=== PATIENT | female | born 1930 | race Caucasian/White ===

== ENCOUNTER 2018-01-27 19:58 | Inpatient (IN) | payer MEDICARE, MEDICAID ==
--- NOTE | 2018-01-27 21:05 | ED Physician Chart ---
ED Chief Complaint/HPI - Patient Information Date Seen:: 01/27/18 Time Seen:: 20:50 Chief Complaint:: facial swelling History of Present Illness:: 88 yr old female with report facial swelling yest here for evaluation Allergies:: Allergies Allergy/AdvReac Type Severity Reaction Status Date / Time ibuprofen Allergy Verified 01/27/18 20:09 Vitals:: Vital Signs - 8 hr 01/27/18 20:00 Temp 97.8 F HR 83 RR 18 BP 153/73 O2 Sat % 96 ED Review of Systems - Review of Systems General/Constitutional: No fever Skin: Other (swelling face) Head: No headache Eyes: No diplopia ENT: No earache Neck: No neck pain Cardio Vascular: No chest pain, No palpitations, No PND, No orthopnea, No edema ED Past Medical History - Past Medical History Obtainable: No Past Medical History: HTN (muscle weakness poor appetite anxiety depression), CVA/TIA, Other (metabolic encephalopathy,) Family History: Other (unclear) Social History: Other (unclear) Family Medical History - Family Member Mother History Unknown: Yes ED Physical Exam - Physical Examination General/Constitutional: Awake, Alert Other Gen/Cons comments:: facial swelling eye lid swelling Other Eyes comments:: bilateral periorbital swelling Other Skin comments:: facial swelling Neck: Nontender Respiratory: Nl effort/Exclusion ED Assessment - Assessment General Assessment: facial edema unclear etiology ED Septic Shock - . Is Septic Shock (SBP<90, OR Lactate>4 mmol\L) present?: No - <6hrs of presentation: Vital Signs: Vital Signs - 8 hr 01/27/18 20:00 Temp 97.8 F HR 83 RR 18 BP 153/73 O2 Sat % 96 ED Reassessment (Disposition) - Reassessment Reassessment:: facial edema Reassessment Condition:: Unchanged - Diagnosis Diagnosis:: edema - Patient Disposition Discharge/Transfer:: Acute Care w/in this hosp ED Discharge Plan - Patient Disposition Admit/Discharge/Transfer: Acute Care w/in this hosp
[2018-01-27 22:34] LABS: % BASOPHILS 1.1 % (0.0-2.0); % EOSINOPHILS 1.1 % (0.0-5.0); % LYMPHOCYTES 14.7 % (20.0-50.0); % MONOCYTES 7.4 % (2.0-10.0); % NEUTROPHILS 75.7 % (40.0-80.0); BASOPHILE ABSOLUTE 0.1 Th/cumm (0-0.2); EOSINOPHILE ABSOLUTE 0.1 Th/cmm (0.1-0.4); HEMATOCRIT 32.8 % (41.0-60); HEMOGLOBIN 10.9 gm/dL (12-16); LYMPHOCYTE ABSOLUTE 1.3 Th/cmm (1.5-3.0); MEAN CELL VOLUME 93.6 fl (81-100); MEAN CORPUSCULAR HGB CONC 33.2 pg (28.0-36.0); MEAN PLATELET VOLUME 6.1 fl; MONOCYTE ABSOLUTE 0.7 Th/cmm (0.3-1.0); NEUTROPHILE ABSOLUTE 6.9 Th/cmm (1.8-8.0); PLATELET COUNT 415 Th/cmm (150-400); RED CELL DISTRIBUTION WIDTH 15.3 % (11.5-20.0); WHITE BLOOD COUNT 9.1 Th/cmm (4.8-10.8)
[2018-01-27 22:52] LABS: ANION GAP 12.1 (7.0-16.0); BUN - UREA NITROGEN 12 mg/dL (7-25); CALCIUM SERUM 7.8 mg/dL (8.6-10.3); CARBON DIOXIDE 20.2 mEq/L (21.0-31.0); CHLORIDE 106 mEq/L (98-107); CREATININE - SERUM 0.5 mg/dL (0.6-1.2); GLUCOSE 91 mg/dL (70-105); POTASSIUM SERUM 3.3 mEq/L (3.5-5.1); SODIUM SERUM 135 mEq/L (136-145)
[2018-01-28] MEDS: D5-0.9%NS 1,000 ML IV SCH ×2 (03:30→23:31)
[2018-01-28] MEDS ORDERED: Pneumococcal Vaccine 0.5 mL Vial IM ONE (06:00)
--- NOTE | 2018-01-28 09:09 | Diagnostic Imaging Report ---
Exam: Chest x-ray portable. HISTORY: Cough. Findings: Portable examination of the chest at 2211 hours reviewed, no prior studies available comparison. The study demonstrates scoliotic convexity of thoracic spine to the right. COPD changes are noted. There is evidence for obliteration of the left costophrenic angle this might be related to atelectasis pneumonia with superimposed effusion. Clinical correlation and follow-up exam is recommended. IMPRESSION: 1. COPD changes Left basilar atelectasis versus infiltrate with superimposed small effusion cannot be excluded clinical correlation and follow-up exam is recommended.
[2018-01-28] MEDS ORDERED: Hydrocodone/APAP 5mg/325mg Tab PO PRN (10:21)
[2018-01-28] MEDS ORDERED: KCL 20mEq/100mL Premix 20 MEQ/100 ML PIGGYBACK IV ONE (10:23)
[2018-01-28] MEDS ORDERED: Mag Sulfate 2gm/50mL Premix 2 GM/50 ML BAG IV PRN (10:24)
[2018-01-28] MEDS ORDERED: Morphine Sulfate 4 mg/mL 1mL Syr IVP PRN (10:24)
[2018-01-28] MEDS: Piperacillin/Tazobact 2.25 gm in 0.9% NS 50 ML IV SCH ×3 (12:13→23:35)
--- NOTE | 2018-01-28 13:31 | History & Physical ---
ADMIT DATE: 01/28/2018 CHIEF COMPLAINT: Weakness, failure to thrive, diminished oral intake. HISTORY OF PRESENT ILLNESS: The patient is an 88-year-old female who is a patient at [facility]. She has history of dementia, Parkinson disease, chronic pain, depression, neuropathy as well. For the last several days, she has been declining in fact she stopped eating about a week ago. Over the last few weeks, she has been becoming weaker and weaker, now. She had zero oral intake and she had been becoming more confused, more lethargic and basically experiencing failure to thrive. She was sent to the hospital for further workup and treatment. PAST MEDICAL HISTORY: Significant for Alzheimer's dementia, Parkinson disease, neuropathic pain, dyslipidemia, anxiety. SOCIAL HISTORY: No history of alcohol, tobacco, or drug abuse. FAMILY HISTORY: Noncontributory. ALLERGIES: IBUPROFEN exact reaction unknown. SURGICAL HISTORY: No recent major surgeries. MEDICATIONS: All snf medications reviewed and we continue most of them; however, I have ordered a swallow evaluation first. REVIEW OF SYSTEMS: GENERAL: Positive recent fatigue, worsening confusion and lethargy. HEENT: No recent head trauma or change in vision, taste, hearing, or smell. Oral: No recent pain or discharge. NEUROLOGIC: She has history of worsening confusion. She has history of Alzheimer dementia and Parkinson's disease. NECK: No recent tracheal deviation. MUSCULOSKELETAL: Positive for worsening muscle weakness and her resting tremor. SKIN: No recent rashes. PSYCHIATRIC: She has history of anxiety and depression. EXTREMITIES: Positive for edema. RESPIRATORY: No history of COPD or asthma. PHYSICAL EXAMINATION: VITAL SIGNS: Temperature is 98.3 degrees, heart rate is 80, respirations 18, blood pressure 130/71. Currently, no pain. GENERAL: No acute distress. She is awake, alert to name only. HEENT: No acute issues. NECK: Trachea is midline. CARDIOVASCULAR: Regular rate and rhythm. SKIN: Poor turgor. MUSCULOSKELETAL: She has muscle wasting and decreased muscle mass and decreased muscle strength. NEUROLOGIC: She has significant tremors of the hands while resting. EXTREMITIES: 1+ edema. She has facial edema and lower extremity edema. RESPIRATORY: Decreased breath sounds bilaterally and some rales and congestion as well. NEUROLOGIC: No evidence of acute stroke or seizure activity. She is confused. She has tremors. ABDOMEN: Nontender, nondistended. GENITOURINARY: No hematuria is noted. LABORATORY DATA: White count is 9.1; hemoglobin 10.9; platelet count 215,000. Sodium 135, potassium 3.2, chloride 106, bicarbonate 20.2, BUN 12, creatinine 0.5, calcium is 7.8. Chest x-ray shows infiltrates. ASSESSMENT AND PLAN: 1. Aspiration pneumonia. 2. Parkinson disease. 3. Neuropathic pain. 4. Hypokalemia. 5. Failure to thrive. 6. Dementia, Alzheimer's type with exacerbation. 7. Hypertension. PLAN: Swallow evaluation has been done. I have started the patient on IV Zosyn. Continue IV fluids of D5 NS. She is to be impaired. Diet will resume if she is not a risk for aspirating. Prognosis is poor. JOB# [id number]
[2018-01-28 19:02] LABS: URINE MICROSCOPIC INDICATED? YES; URINE SOURCE CLEAN C
[2018-01-28 19:03] LABS: URINE BILIRUBIN NEGATIVE (NEGATIVE); URINE BLOOD TRACE (NEGATIVE); URINE GLUCOSE (UA) NEGATIVE (NEGATIVE); URINE KETONE 15 mg/dL (NEGATIVE); URINE LEUKOCYTE ESTERASE NEGATIVE (NEGATIVE); URINE NITRATE NEGATIVE (NEGATIVE); URINE PH 5.5 (4.6 - 8.0); URINE PROTEIN NEGATIVE (NEGATIVE); URINE UROBILINOGEN 0.2 E.U./dL (0.2 - 1.0)
[2018-01-28 19:06] LABS: URINE BACTERIA NONE SEEN /hpf (NONE SEEN); URINE CLARITY CLEAR (CLEAR); URINE COLOR YELLOW; URINE EPITHELIAL CELLS NONE SEEN /lpf (FEW); URINE WBC NONE SEEN /hpf (0-5)
[2018-01-29 05:20] LABS: % BASOPHILS 2.1 % (0.0-2.0); % EOSINOPHILS 3.4 % (0.0-5.0); % LYMPHOCYTES 20.2 % (20.0-50.0); % NEUTROPHILS 64.3 % (40.0-80.0); BASOPHILE ABSOLUTE 0.1 Th/cumm (0-0.2); EOSINOPHILE ABSOLUTE 0.2 Th/cmm (0.1-0.4); HEMATOCRIT 29.6 % (41.0-60); HEMOGLOBIN 9.7 gm/dL (12-16); LYMPHOCYTE ABSOLUTE 1.2 Th/cmm (1.5-3.0); MEAN CORPUSCULAR HEMOGLOBIN 30.8 pg (27.0-31.0); MEAN CORPUSCULAR HGB CONC 32.8 pg (28.0-36.0); MEAN PLATELET VOLUME 6.1 fl; MONOCYTE ABSOLUTE 0.6 Th/cmm (0.3-1.0); NEUTROPHILE ABSOLUTE 3.8 Th/cmm (1.8-8.0); PLATELET COUNT 407 Th/cmm (150-400); RED BLOOD COUNT 3.15 Mil/cmm (3.80-5.20); WHITE BLOOD COUNT 5.9 Th/cmm (4.8-10.8)
[2018-01-29 05:31] LABS: ANION GAP 8.8 (7.0-16.0); BUN - UREA NITROGEN 11 mg/dL (7-25); CALCIUM SERUM 7.5 mg/dL (8.6-10.3); CARBON DIOXIDE 24.2 mEq/L (21.0-31.0); CHLORIDE 106 mEq/L (98-107); CREATININE - SERUM 0.7 mg/dL (0.6-1.2); GLUCOSE 126 mg/dL (70-105); SODIUM SERUM 136 mEq/L (136-145)
[2018-01-29] MEDS: Piperacillin/Tazobact 2.25 gm in 0.9% NS 50 ML IV SCH ×3 (06:02→17:08)
[2018-01-29] MEDS ORDERED: Potassium Chloride 40 MEQ, Lidocaine 1% 20mL Vial 25 MG in Sodium Chloride 0.9% 250 ML IV ONE (10:30)
[2018-01-29] MEDS ORDERED: Potassium Chloride 20 mEq ER Tab PO PRN (10:31)
[2018-01-29] MEDS ORDERED: Albuterol/Ipratropium Neb 3 ML AERS HHN PRN (10:33)
--- NOTE | 2018-01-29 10:35 | General Progress Note ---
Subjective - Review of Systems Service Date: 01/29/18 Subjective: Pt seen and eval. Weak. Confused. No n,v,d or cp. On IV Zosyn. No fevers or chills. No pain. No falls or sz. Has sob with exertion. Objective - Results Result Diagrams: 01/29/18 05:05 01/29/18 05:05 Recent Labs: Laboratory Last Values WBC 5.9 Th/cmm (4.8-10.8) 01/29/18 05:05 RBC 3.15 Mil/cmm (3.80-5.20) L 01/29/18 05:05 Hgb 9.7 gm/dL (12-16) L 01/29/18 05:05 Hct 29.6 % (41.0-60) L 01/29/18 05:05 MCV 94.0 fl (81-100) 01/29/18 05:05 MCH 30.8 pg (27.0-31.0) 01/29/18 05:05 MCHC Differential 32.8 pg (28.0-36.0) 01/29/18 05:05 RDW 15.0 % (11.5-20.0) 01/29/18 05:05 Plt Count 407 Th/cmm (150-400) H 01/29/18 05:05 MPV 6.1 fl 01/29/18 05:05 Neutrophils % 64.3 % (40.0-80.0) 01/29/18 05:05 Lymphocytes % 20.2 % (20.0-50.0) 01/29/18 05:05 Monocytes % 10.0 % (2.0-10.0) 01/29/18 05:05 Eosinophils % 3.4 % (0.0-5.0) 01/29/18 05:05 Basophils % 2.1 % (0.0-2.0) H 01/29/18 05:05 Sodium 136 mEq/L (136-145) 01/29/18 05:05 Potassium 3.0 mEq/L (3.5-5.1) L 01/29/18 05:05 Chloride 106 mEq/L (98-107) 01/29/18 05:05 Carbon Dioxide 24.2 mEq/L (21.0-31.0) 01/29/18 05:05 Anion Gap 8.8 (7.0-16.0) 01/29/18 05:05 BUN 11 mg/dL (7-25) 01/29/18 05:05 Creatinine 0.7 mg/dL (0.6-1.2) 01/29/18 05:05 Est GFR ( Amer) TNP 01/29/18 05:05 Est GFR (Non-Af Amer) TNP 01/29/18 05:05 BUN/Creatinine Ratio 15.7 01/29/18 05:05 Glucose 126 mg/dL (70-105) H 01/29/18 05:05 Calcium 7.5 mg/dL (8.6-10.3) L 01/29/18 05:05 Magnesium 1.7 mg/dL (1.9-2.7) L 01/28/18 10:40 Urine Source CLEAN C 01/28/18 16:50 Urine Color YELLOW 01/28/18 16:50 Urine Clarity CLEAR (CLEAR) 01/28/18 16:50 Urine pH 5.5 (4.6 - 8.0) 01/28/18 16:50 Ur Specific [place] 1.020 (1.005-1.030) 01/28/18 16:50 Urine Protein NEGATIVE mg/dL (NEGATIVE) 01/28/18 16:50 Urine Glucose (UA) NEGATIVE mg/dL (NEGATIVE) 01/28/18 16:50 Urine Ketones 15 mg/dL (NEGATIVE) H 01/28/18 16:50 Urine Blood TRACE (NEGATIVE) 01/28/18 16:50 Urine Nitrate NEGATIVE (NEGATIVE) 01/28/18 16:50 Urine Bilirubin NEGATIVE (NEGATIVE) 01/28/18 16:50 Urine Urobilinogen 0.2 E.U./dL (0.2 - 1.0) 01/28/18 16:50 Ur Leukocyte Esterase NEGATIVE (NEGATIVE) 01/28/18 16:50 Urine RBC 2-5 /hpf (0-5) 01/28/18 16:50 Urine WBC NONE SEEN /hpf (0-5) 01/28/18 16:50 Ur Epithelial Cells NONE SEEN /lpf (FEW) 01/28/18 16:50 Urine Bacteria NONE SEEN /hpf (NONE SEEN) 01/28/18 16:50 - Physical Exam Vitals and I&O: Vital Signs Temp 98.6 F 01/29/18 04:00 Pulse 70 01/29/18 09:36 Resp 18 01/29/18 04:00 BP 131/62 01/29/18 09:36 Pulse Ox 95 01/29/18 04:00 Intake & Output 01/28/18 01/29/18 01/29/18 18:59 06:59 18:59 Intake Total 2300 100 Balance 2300 100 Weight (lbs) 40.642 kg 44.724 kg Intake: Intake, IV Amount 1200 100 D5-0.9%Ns 1,000 ml @ 70 1000 mls/hr IV .[id number] [facility] Rx #:[id number] Piperacillin Sodium/ 100 100 Tazobact 2.25 gm In Sodium Chloride 0.9% 50 ml @ 100 mls/hr IV Q6HR [facility] Rx#:[id number] Oral 1100 Other: # Voids 4 # Bowel Movements 1 Weight Source Bedscale Bedscale Active Medications: Current Medications Acetaminophen (Tylenol) 650 mg PO Q6H PRN PRN Reason: HEADACHE/TEMP ABOVE 100F Stop: 03/29/18 10:23 Acetaminophen/Hydrocodone Bitart ([place] 5mg/325mg) 1 tab PO Q6H PRN PRN Reason: Pain (Moderate) Stop: 03/29/18 10:20 Carbidopa/Levodopa (Sinemet 25 Mg-250 Mg) 1 tab PO QID [facility] Stop: 03/29/18 12:59 Last Admin: 01/29/18 09:36 Dose: 1 tab Docusate Sodium (Colace) 100 mg PO BID PRN PRN Reason: Constipation Stop: 03/29/18 10:23 Gabapentin (Neurontin) 300 mg PO BID [facility] Stop: 03/29/18 16:59 Last Admin: 01/29/18 09:36 Dose: 300 mg Heparin Sodium (Porcine) (Heparin) 5,000 units SUBQ Q12HR [facility] Stop: 03/29/18 20:59 Last Admin: 01/29/18 09:37 Dose: 5,000 units Dextrose/Sodium Chloride (D5-0.9%Ns) 1,000 mls @ 70 mls/hr IV .[id number] [facility] Stop: 03/29/18 00:44 Last Admin: 01/28/18 23:31 Dose: 70 mls/hr Magnesium Sulfate (Magnesium Sulfate Premix) 2 gm in 50 mls @ 25 mls/hr IV DAILY PRN PRN Reason: Magnesium level less than 1.6 Stop: 03/29/18 10:23 Piperacillin Sod/Tazobactam (Sod 2.25 gm/ Sodium Chloride) 50 mls @ 100 mls/hr IV Q6HR [facility] Stop: 03/29/18 11:59 Last Infusion: 01/29/18 06:32 Dose: Infused Potassium Chloride 40 meq/Lidocaine HCl 25 mg/ Sodium Chloride 272.5 mls @ 68 mls/hr IV X1 ONE Stop: 01/29/18 14:30 Magnesium Sulfate (Magnesium Sulfate Premix) 2 gm in 50 mls @ 25 mls/hr IV X1 ONE Stop: 01/29/18 12:31 Lorazepam (Ativan) 1 mg IVP Q4HR PRN; Protocol PRN Reason: Agitation Stop: 03/29/18 10:23 Losartan Potassium (Cozaar) 50 mg PO DAILY [facility] Stop: 03/30/18 08:59 Last Admin: 01/29/18 09:36 Dose: 50 mg Magnesium Oxide (Mag-Oxide) 400 mg PO BID PRN PRN Reason: Mg less than 1.9 Stop: 03/29/18 10:23 Last Admin: 01/29/18 00:34 Dose: 400 mg Miscellaneous (Zosyn Iv Per Pharmacy) 1 ea MC PRN PRN PRN Reason: PROTOCOL Stop: 03/29/18 10:19 Morphine Sulfate (Morphine) 1 mg IVP Q4HR PRN PRN Reason: Severe Pain Stop: 03/29/18 10:23 Ondansetron HCl (Zofran) 4 mg IVP Q6H PRN PRN Reason: Nausea / Vomiting Stop: 03/29/18 10:23 Potassium Chloride (Klor-Con) 40 meq PO DAILY PRN PRN Reason: k level less than 3.5 Stop: 03/30/18 10:30 General: No acute distress, Other (confused, weak) HEENT: Atraumatic, PERRLA Neck: Supple, no JVD Cardiovascular: Regular rate, Normal S1 Lungs: Other (decreased BS BL) Assessment/Plan - Assessment Assessment: Asp PNA Hypokalemia Parkinson's disease Fail to thrive Neuropathic pain ANAMARIA with exac HTN Possible dysphagia - Plan Plan: Swallow eval pending. On IV Zosyn. Start prn Duoneb. K rider today. Pt very weak. Nutritional Asmnt/Malnutr-PDOC - Dietary Evaluation Malnutrition Findings (Please click <Entered> for more info): Nutritional Asmnt/Malnutrition Start: 01/28/18 12: 33 Text: Status: Complete Freq: Document 01/28/18 12:33 KORIN (Rec: 01/28/18 12:47 [facility]) Nutritional Asmnt/Malnutrition Patient General Information Nutritional Screening Consult Diagnosis Failure to Thrive Pertinent Medical Hx/Surgical Hx HTN, muscle weakness, poor appetite, anxitety, depression , CVA/TIA, metabolic encephalopathy Subjective Information Consult received for Yg Jacobs . Per nursing notes, patient with poor appetite x 1 day. Per nursing notes, patient is aphasic. Swallow evaluation pending. Patient's family at bedside; states she only eats ground foods due to no teeth, mostly liquids. Likes her liquids on ice and with a bendy straw. States they have been bringing her in "halo halo" ice cream, and she has been eating ~1 cup at a time. Per family, patient weighed 98lb a few months ago (9lb weight loss). Patient appears with severe muscle wasting. Current Diet Order/ Nutrition Support Mechanical soft ground Patient / S.O Can't verbalize diet edu Pertinent Medications D5-0.9% NS @70ml/hr, colace, cozaar, mag-oxide, magnesium sulfate, zofran, abx Pertinent Labs (01/27) Na 135, K 3.3, Calcium 7.8, Mg 1.7 Nutritional Hx/Data Height 1.52 m Height (Calculated Centimeters) 152.4 Current Weight (lbs) 40.37 kg Weight (Calculated Kilograms) 40.4 Weight (Calculated Grams) 68994.7 [place] Body Weight 100 % [place] Body Weight 89 Body Mass Index (BMI) 17.4 Recent Weight Change No Weight Status Underweight GI Symptoms GI Symptoms None Last BM none noted since admission Difficult in: Chewing Food Allergies No Cultural/Ethnic/Zoroastrian Belief none indicated Usual diet at home ground, mostly liquid (likes strawberry nutrition supplements.) Skin Integrity/Comment: Yg Jacobs, coccyx "area of concern", scar Current %PO Poor (25-49%) Estimated Nutritional Goals BEE in Kcals: Using Current wt Calories/Kcals/Kg 40.4kg CBW (30-35 kcal/kg) Kcals Calculated ~7681-3866 kcal/day Protein: Using Current wt Protein g/k.2-1.5 gm/kg Protein Calculated ~50-60gm/day Fluid: ml ~5474-6468 ml/day Nutritional Problem 1. Problem Problem Altered nutrition related lab values related to Etiology electrolyte imbalance aeb Signs/Symptoms: Na 135, K 3.3, Calcium 7.8, Mg 1.7 Intervention/Recommendation Comments 1. Continue mechanical soft ground diet as tolerated by patient. Modify diet texture based on results of swallow evaluation. 2. Add Boost plus (strawberry, by patient's request) TID with meals due to patient prefering nutrition from liquids. 3. Provide assistance with all meals. 4. F/U HR 01/30- Expected Outcomes/Goals Expected Outcomes/Goals Oral intake >75% of meals, weight gain toward IBW, labs WNL.
[2018-01-29] MEDS ORDERED: Mag Sulfate 2gm/50mL Premix 2 GM/50 ML BAG IV ONE (11:00)
[2018-01-29] MEDS: KCL 20mEq/100mL Premix 20 MEQ/100 ML PIGGYBACK IV SCH ×2 (11:57→12:02)
[2018-01-29] MEDS: D5-0.9%NS 1,000 ML IV SCH (17:07)
[2018-01-30] MEDS: Piperacillin/Tazobact 2.25 gm in 0.9% NS 50 ML IV SCH ×4 (02:41→18:11)
[2018-01-30 05:07] LABS: % BASOPHILS 0.6 % (0.0-2.0); % EOSINOPHILS 5.7 % (0.0-5.0); % LYMPHOCYTES 19.9 % (20.0-50.0); % MONOCYTES 7.6 % (2.0-10.0); % NEUTROPHILS 66.2 % (40.0-80.0); BASOPHILE ABSOLUTE 0.1 Th/cumm (0-0.2); EOSINOPHILE ABSOLUTE 0.5 Th/cmm (0.1-0.4); HEMATOCRIT 29.5 % (41.0-60); HEMOGLOBIN 9.9 gm/dL (12-16); LYMPHOCYTE ABSOLUTE 1.8 Th/cmm (1.5-3.0); MEAN CORPUSCULAR HEMOGLOBIN 31.6 pg (27.0-31.0); MEAN CORPUSCULAR HGB CONC 33.6 pg (28.0-36.0); MEAN PLATELET VOLUME 5.9 fl; MONOCYTE ABSOLUTE 0.7 Th/cmm (0.3-1.0); NEUTROPHILE ABSOLUTE 5.7 Th/cmm (1.8-8.0); PLATELET COUNT 396 Th/cmm (150-400); RED BLOOD COUNT 3.14 Mil/cmm (3.80-5.20); RED CELL DISTRIBUTION WIDTH 15.4 % (11.5-20.0)
[2018-01-30 05:12] LABS: WHITE BLOOD COUNT 8.8 Th/cmm (4.8-10.8)
[2018-01-30 05:39] LABS: ANION GAP 8.8 (7.0-16.0); BUN - UREA NITROGEN 6 mg/dL (7-25); CALCIUM SERUM 7.4 mg/dL (8.6-10.3); CARBON DIOXIDE 23.7 mEq/L (21.0-31.0); CHLORIDE 106 mEq/L (98-107); CREATININE - SERUM 0.6 mg/dL (0.6-1.2); GLUCOSE 112 mg/dL (70-105); MAGNESIUM 2.2 mg/dL (1.9-2.7); POTASSIUM SERUM 3.5 mEq/L (3.5-5.1); SODIUM SERUM 135 mEq/L (136-145)
--- NOTE | 2018-01-30 09:05 | General Progress Note ---
Subjective - Review of Systems Service Date: 01/30/18 Subjective: Pt seen and eval. Weak. Confused. No n,v,d or cp. On IV Zosyn. No fevers or chills. No pain. No falls or sz. Has sob with exertion. Swallow eval to be done today. Objective - Results Result Diagrams: 01/30/18 05:00 01/30/18 05:00 Recent Labs: Laboratory Last Values WBC 8.8 Th/cmm (4.8-10.8) D 01/30/18 05:00 RBC 3.14 Mil/cmm (3.80-5.20) L 01/30/18 05:00 Hgb 9.9 gm/dL (12-16) L 01/30/18 05:00 Hct 29.5 % (41.0-60) L 01/30/18 05:00 MCV 94.0 fl (81-100) 01/30/18 05:00 MCH 31.6 pg (27.0-31.0) H 01/30/18 05:00 MCHC Differential 33.6 pg (28.0-36.0) 01/30/18 05:00 RDW 15.4 % (11.5-20.0) 01/30/18 05:00 Plt Count 396 Th/cmm (150-400) 01/30/18 05:00 MPV 5.9 fl 01/30/18 05:00 Neutrophils % 66.2 % (40.0-80.0) 01/30/18 05:00 Lymphocytes % 19.9 % (20.0-50.0) L 01/30/18 05:00 Monocytes % 7.6 % (2.0-10.0) 01/30/18 05:00 Eosinophils % 5.7 % (0.0-5.0) H 01/30/18 05:00 Basophils % 0.6 % (0.0-2.0) 01/30/18 05:00 Sodium 135 mEq/L (136-145) L 01/30/18 05:00 Potassium 3.5 mEq/L (3.5-5.1) 01/30/18 05:00 Chloride 106 mEq/L (98-107) 01/30/18 05:00 Carbon Dioxide 23.7 mEq/L (21.0-31.0) 01/30/18 05:00 Anion Gap 8.8 (7.0-16.0) 01/30/18 05:00 BUN 6 mg/dL (7-25) L 01/30/18 05:00 Creatinine 0.6 mg/dL (0.6-1.2) 01/30/18 05:00 Est GFR ( Amer) TNP 01/30/18 05:00 Est GFR (Non-Af Amer) TNP 01/30/18 05:00 BUN/Creatinine Ratio 10.0 01/30/18 05:00 Glucose 112 mg/dL (70-105) H 01/30/18 05:00 Calcium 7.4 mg/dL (8.6-10.3) L 01/30/18 05:00 Magnesium 2.2 mg/dL (1.9-2.7) 01/30/18 05:00 Urine Source CLEAN C 01/28/18 16:50 Urine Color YELLOW 01/28/18 16:50 Urine Clarity CLEAR (CLEAR) 01/28/18 16:50 Urine pH 5.5 (4.6 - 8.0) 01/28/18 16:50 Ur Specific [place] 1.020 (1.005-1.030) 01/28/18 16:50 Urine Protein NEGATIVE mg/dL (NEGATIVE) 01/28/18 16:50 Urine Glucose (UA) NEGATIVE mg/dL (NEGATIVE) 01/28/18 16:50 Urine Ketones 15 mg/dL (NEGATIVE) H 01/28/18 16:50 Urine Blood TRACE (NEGATIVE) 01/28/18 16:50 Urine Nitrate NEGATIVE (NEGATIVE) 01/28/18 16:50 Urine Bilirubin NEGATIVE (NEGATIVE) 01/28/18 16:50 Urine Urobilinogen 0.2 E.U./dL (0.2 - 1.0) 01/28/18 16:50 Ur Leukocyte Esterase NEGATIVE (NEGATIVE) 01/28/18 16:50 Urine RBC 2-5 /hpf (0-5) 01/28/18 16:50 Urine WBC NONE SEEN /hpf (0-5) 01/28/18 16:50 Ur Epithelial Cells NONE SEEN /lpf (FEW) 01/28/18 16:50 Urine Bacteria NONE SEEN /hpf (NONE SEEN) 01/28/18 16:50 - Physical Exam Vitals and I&O: Vital Signs Temp 98.4 F 01/30/18 07:31 Pulse 77 01/30/18 07:45 Resp 20 01/30/18 07:45 BP 137/71 01/30/18 07:31 Pulse Ox 95 01/30/18 07:45 Intake & Output 01/29/18 01/30/18 01/30/18 18:59 06:59 18:59 Intake Total 2254.167 290 Balance 2254.167 290 Weight (lbs) 44.679 kg 44.452 kg Intake: Intake, IV Amount 1104.167 50 D5-0.9%Ns 1,000 ml @ 70 1000 mls/hr IV .[id number] [facility] Rx #:[id number] KCL 20mEq/100mL Premix 20 4.167 meq In 100 ml @ 50 mls/ hr IV Q2H [facility] Rx#: [id number] Piperacillin Sodium/ 100 50 Tazobact 2.25 gm In Sodium Chloride 0.9% 50 ml @ 100 mls/hr IV Q6HR [facility] Rx#:[id number] Oral 1150 240 Other: # Voids 3 3 # Bowel Movements 0 2 Stool Characteristics Soft Soft Weight Source Bedscale Bedscale Active Medications: Current Medications Acetaminophen (Tylenol) 650 mg PO Q6H PRN PRN Reason: HEADACHE/TEMP ABOVE 100F Stop: 03/29/18 10:23 Acetaminophen/Hydrocodone Bitart ([place] 5mg/325mg) 1 tab PO Q6H PRN PRN Reason: Pain (Moderate) Stop: 03/29/18 10:20 Albuterol/Ipratropium (Duoneb Neb) 3 ml HHN Q4H PRN PRN Reason: Wheezing Stop: 03/30/18 10:32 Carbidopa/Levodopa (Sinemet 25 Mg-250 Mg) 1 tab PO QID [facility] Stop: 03/29/18 12:59 Last Admin: 01/29/18 21:54 Dose: 1 tab Docusate Sodium (Colace) 100 mg PO BID PRN PRN Reason: Constipation Stop: 03/29/18 10:23 Gabapentin (Neurontin) 300 mg PO BID [facility] Stop: 03/29/18 16:59 Last Admin: 01/29/18 17:08 Dose: 300 mg Heparin Sodium (Porcine) (Heparin) 5,000 units SUBQ Q12HR [facility] Stop: 03/29/18 20:59 Last Admin: 01/29/18 21:54 Dose: 5,000 units Dextrose/Sodium Chloride (D5-0.9%Ns) 1,000 mls @ 70 mls/hr IV .[id number] [facility] Stop: 03/29/18 00:44 Last Admin: 01/29/18 17:07 Dose: 70 mls/hr Magnesium Sulfate (Magnesium Sulfate Premix) 2 gm in 50 mls @ 25 mls/hr IV DAILY PRN PRN Reason: Magnesium level less than 1.6 Stop: 03/29/18 10:23 Piperacillin Sod/Tazobactam (Sod 2.25 gm/ Sodium Chloride) 50 mls @ 100 mls/hr IV Q6HR [facility] Stop: 03/29/18 11:59 Last Admin: 01/30/18 06:01 Dose: 100 mls/hr Lorazepam (Ativan) 1 mg IVP Q4HR PRN; Protocol PRN Reason: Agitation Stop: 03/29/18 10:23 Losartan Potassium (Cozaar) 50 mg PO DAILY [facility] Stop: 03/30/18 08:59 Last Admin: 01/29/18 09:36 Dose: 50 mg Magnesium Oxide (Mag-Oxide) 400 mg PO BID PRN PRN Reason: Mg less than 1.9 Stop: 03/29/18 10:23 Last Admin: 01/29/18 00:34 Dose: 400 mg Miscellaneous (Zosyn Iv Per Pharmacy) 1 ea MC PRN PRN PRN Reason: PROTOCOL Stop: 03/29/18 10:19 Morphine Sulfate (Morphine) 1 mg IVP Q4HR PRN PRN Reason: Severe Pain Stop: 03/29/18 10:23 Ondansetron HCl (Zofran) 4 mg IVP Q6H PRN PRN Reason: Nausea / Vomiting Stop: 03/29/18 10:23 Potassium Chloride (Klor-Con) 40 meq PO DAILY PRN PRN Reason: k level less than 3.5 Stop: 03/30/18 10:30 General: No acute distress, Other (confused, weak) HEENT: Atraumatic, PERRLA Neck: Supple, no JVD Cardiovascular: Regular rate, Normal S1 Lungs: Other (decreased BS BL) Assessment/Plan - Assessment Assessment: Asp PNA Hypokalemia Parkinson's disease Fail to thrive Neuropathic pain ANAMARIA with exac HTN Possible dysphagia - Plan Plan: Swallow eval pending. On IV Zosyn. Start prn Duoneb. Hypokalemia and Hypomagnesemia resolved. Pt very weak. Swallow eval to be done today. Nutritional Asmnt/Malnutr-PDOC - Dietary Evaluation Malnutrition Findings (Please click <Entered> for more info): Nutritional Asmnt/Malnutrition Start: 01/28/18 12: 33 Text: Status: Complete Freq: Document 01/28/18 12:33 [facility] (Rec: 01/28/18 12:47 [facility] Nutritional Asmnt/Malnutrition Patient General Information Nutritional Screening Consult Diagnosis Failure to Thrive Pertinent Medical Hx/Surgical Hx HTN, muscle weakness, poor appetite, anxitety, depression , CVA/TIA, metabolic encephalopathy Subjective Information Consult received for Yg 11 . Per nursing notes, patient with poor appetite x 1 day. Per nursing notes, patient is aphasic. Swallow evaluation pending. Patient's family at bedside; states she only eats ground foods due to no teeth, mostly liquids. Likes her liquids on ice and with a bendy straw. States they have been bringing her in "halo halo" ice cream, and she has been eating ~1 cup at a time. Per family, patient weighed 98lb a few months ago (9lb weight loss). Patient appears with severe muscle wasting. Current Diet Order/ Nutrition Support Mechanical soft ground Patient / S.O Can't verbalize diet edu Pertinent Medications D5-0.9% NS @70ml/hr, colace, cozaar, mag-oxide, magnesium sulfate, zofran, abx Pertinent Labs (01/27) Na 135, K 3.3, Calcium 7.8, Mg 1.7 Nutritional Hx/Data Height 1.52 m Height (Calculated Centimeters) 152.4 Current Weight (lbs) 40.37 kg Weight (Calculated Kilograms) 40.4 Weight (Calculated Grams) 78489.7 [place] Body Weight 100 % [place] Body Weight 89 Body Mass Index (BMI) 17.4 Recent Weight Change No Weight Status Underweight GI Symptoms GI Symptoms None Last BM none noted since admission Difficult in: Chewing Food Allergies No Cultural/Ethnic/Buddhist Belief none indicated Usual diet at home ground, mostly liquid (likes strawberry nutrition supplements.) Skin Integrity/Comment: Yg 11, coccyx "area of concern", scar Current %PO Poor (25-49%) Estimated Nutritional Goals BEE in Kcals: Using Current wt Calories/Kcals/Kg 40.4kg CBW (30-35 kcal/kg) Kcals Calculated ~7295-1122 kcal/day Protein: Using Current wt Protein g/k.2-1.5 gm/kg Protein Calculated ~50-60gm/day Fluid: ml ~5003-3604 ml/day Nutritional Problem 1. Problem Problem Altered nutrition related lab values related to Etiology electrolyte imbalance aeb Signs/Symptoms: Na 135, K 3.3, Calcium 7.8, Mg 1.7 Intervention/Recommendation Comments 1. Continue mechanical soft ground diet as tolerated by patient. Modify diet texture based on results of swallow evaluation. 2. Add Boost plus (strawberry, by patient's request) TID with meals due to patient prefering nutrition from liquids. 3. Provide assistance with all meals. 4. F/U HR 01/30- Expected Outcomes/Goals Expected Outcomes/Goals Oral intake >75% of meals, weight gain toward IBW, labs WNL.
[2018-01-30] MEDS: D5-0.9%NS 1,000 ML IV SCH (10:07)
[2018-01-31] MEDS: Piperacillin/Tazobact 2.25 gm in 0.9% NS 50 ML IV SCH ×3 (00:26→13:25)
[2018-01-31 06:33] LABS: % BASOPHILS 0.4 % (0.0-2.0); % EOSINOPHILS 1.3 % (0.0-5.0); % LYMPHOCYTES 12.3 % (20.0-50.0); % MONOCYTES 6.5 % (2.0-10.0); % NEUTROPHILS 79.5 % (40.0-80.0); EOSINOPHILE ABSOLUTE 0.1 Th/cmm (0.1-0.4); HEMOGLOBIN 10.8 gm/dL (12-16); LYMPHOCYTE ABSOLUTE 1.3 Th/cmm (1.5-3.0); MEAN CELL VOLUME 93.7 fl (81-100); MEAN CORPUSCULAR HEMOGLOBIN 30.7 pg (27.0-31.0); MEAN CORPUSCULAR HGB CONC 32.8 pg (28.0-36.0); MEAN PLATELET VOLUME 6.1 fl; MONOCYTE ABSOLUTE 0.7 Th/cmm (0.3-1.0); NEUTROPHILE ABSOLUTE 8.7 Th/cmm (1.8-8.0); PLATELET COUNT 442 Th/cmm (150-400); RED BLOOD COUNT 3.52 Mil/cmm (3.80-5.20); RED CELL DISTRIBUTION WIDTH 15.3 % (11.5-20.0); WHITE BLOOD COUNT 10.8 Th/cmm (4.8-10.8)
[2018-01-31 06:45] LABS: ANION GAP 11.2 (7.0-16.0); BUN - UREA NITROGEN 5 mg/dL (7-25); CALCIUM SERUM 7.7 mg/dL (8.6-10.3); CARBON DIOXIDE 21.9 mEq/L (21.0-31.0); CHLORIDE 106 mEq/L (98-107); CREATININE - SERUM 0.6 mg/dL (0.6-1.2); GLUCOSE 126 mg/dL (70-105); POTASSIUM SERUM 3.1 mEq/L (3.5-5.1); SODIUM SERUM 136 mEq/L (136-145)
[2018-01-31] MEDS ORDERED: Potassium Chloride 40 MEQ, Lidocaine 1% 20mL Vial 25 MG in Sodium Chloride 0.9% 250 ML IV PRN (10:47)
--- NOTE | 2018-01-31 10:48 | General Progress Note ---
Subjective - Review of Systems Service Date: 01/31/18 Subjective: Pt seen and eval. Weak. Confused. No n,v,d or cp. On IV Zosyn. No fevers or chills. No pain. No falls or sz. Has sob with exertion. She failed swallow eval. Family requested hospice eval. Objective - Results Result Diagrams: 01/31/18 05:45 01/31/18 05:45 Recent Labs: Laboratory Last Values WBC 10.8 Th/cmm (4.8-10.8) 01/31/18 05:45 RBC 3.52 Mil/cmm (3.80-5.20) L 01/31/18 05:45 Hgb 10.8 gm/dL (12-16) L 01/31/18 05:45 Hct 33.0 % (41.0-60) L 01/31/18 05:45 MCV 93.7 fl (81-100) 01/31/18 05:45 MCH 30.7 pg (27.0-31.0) 01/31/18 05:45 MCHC Differential 32.8 pg (28.0-36.0) 01/31/18 05:45 RDW 15.3 % (11.5-20.0) 01/31/18 05:45 Plt Count 442 Th/cmm (150-400) H 01/31/18 05:45 MPV 6.1 fl 01/31/18 05:45 Neutrophils % 79.5 % (40.0-80.0) 01/31/18 05:45 Lymphocytes % 12.3 % (20.0-50.0) L 01/31/18 05:45 Monocytes % 6.5 % (2.0-10.0) 01/31/18 05:45 Eosinophils % 1.3 % (0.0-5.0) 01/31/18 05:45 Basophils % 0.4 % (0.0-2.0) 01/31/18 05:45 Sodium 136 mEq/L (136-145) 01/31/18 05:45 Potassium 3.1 mEq/L (3.5-5.1) L 01/31/18 05:45 Chloride 106 mEq/L (98-107) 01/31/18 05:45 Carbon Dioxide 21.9 mEq/L (21.0-31.0) 01/31/18 05:45 Anion Gap 11.2 (7.0-16.0) 01/31/18 05:45 BUN 5 mg/dL (7-25) L 01/31/18 05:45 Creatinine 0.6 mg/dL (0.6-1.2) 01/31/18 05:45 Est GFR ( Amer) TNP 01/31/18 05:45 Est GFR (Non-Af Amer) TNP 01/31/18 05:45 BUN/Creatinine Ratio 8.3 01/31/18 05:45 Glucose 126 mg/dL (70-105) H 01/31/18 05:45 Calcium 7.7 mg/dL (8.6-10.3) L 01/31/18 05:45 Magnesium 2.2 mg/dL (1.9-2.7) 01/30/18 05:00 Urine Source CLEAN C 01/28/18 16:50 Urine Color YELLOW 01/28/18 16:50 Urine Clarity CLEAR (CLEAR) 01/28/18 16:50 Urine pH 5.5 (4.6 - 8.0) 01/28/18 16:50 Ur Specific Mobile 1.020 (1.005-1.030) 01/28/18 16:50 Urine Protein NEGATIVE mg/dL (NEGATIVE) 01/28/18 16:50 Urine Glucose (UA) NEGATIVE mg/dL (NEGATIVE) 01/28/18 16:50 Urine Ketones 15 mg/dL (NEGATIVE) H 01/28/18 16:50 Urine Blood TRACE (NEGATIVE) 01/28/18 16:50 Urine Nitrate NEGATIVE (NEGATIVE) 01/28/18 16:50 Urine Bilirubin NEGATIVE (NEGATIVE) 01/28/18 16:50 Urine Urobilinogen 0.2 E.U./dL (0.2 - 1.0) 01/28/18 16:50 Ur Leukocyte Esterase NEGATIVE (NEGATIVE) 01/28/18 16:50 Urine RBC 2-5 /hpf (0-5) 01/28/18 16:50 Urine WBC NONE SEEN /hpf (0-5) 01/28/18 16:50 Ur Epithelial Cells NONE SEEN /lpf (FEW) 01/28/18 16:50 Urine Bacteria NONE SEEN /hpf (NONE SEEN) 01/28/18 16:50 - Physical Exam Vitals and I&O: Vital Signs Temp 97.6 F 01/31/18 07:43 Pulse 80 01/31/18 09:57 Resp 18 01/31/18 08:00 BP 155/79 01/31/18 09:57 Pulse Ox 96 01/31/18 07:43 Intake & Output 01/30/18 01/31/18 01/31/18 18:59 06:59 18:59 Intake Total 1100 550 Balance 1100 550 Weight (lbs) 44.452 kg Intake: Intake, IV Amount 1100 50 D5-0.9%Ns 1,000 ml @ 70 1000 mls/hr IV .[id number] [facility] Rx #:[id number] Piperacillin Sodium/ 100 50 Tazobact 2.25 gm In Sodium Chloride 0.9% 50 ml @ 100 mls/hr IV Q6HR [facility] Rx#:[id number] Oral 500 Other: Stool Characteristics Soft Soft Weight Source Patient stated Active Medications: Current Medications Acetaminophen (Tylenol) 650 mg PO Q6H PRN PRN Reason: HEADACHE/TEMP ABOVE 100F Stop: 03/29/18 10:23 Acetaminophen/Hydrocodone Bitart (Babylon 5mg/325mg) 1 tab PO Q6H PRN PRN Reason: Pain (Moderate) Stop: 03/29/18 10:20 Albuterol/Ipratropium (Duoneb Neb) 3 ml HHN Q4H PRN PRN Reason: Wheezing Stop: 03/30/18 10:32 Carbidopa/Levodopa (Sinemet 25 Mg-250 Mg) 1 tab PO QID [facility] Stop: 03/29/18 12:59 Last Admin: 01/31/18 09:33 Dose: 1 tab Docusate Sodium (Colace) 100 mg PO BID PRN PRN Reason: Constipation Stop: 03/29/18 10:23 Gabapentin (Neurontin) 300 mg PO BID [facility] Stop: 03/29/18 16:59 Last Admin: 01/31/18 09:34 Dose: 300 mg Heparin Sodium (Porcine) (Heparin) 5,000 units SUBQ Q12HR [facility] Stop: 03/29/18 20:59 Last Admin: 01/31/18 09:29 Dose: 5,000 units Dextrose/Sodium Chloride (D5-0.9%Ns) 1,000 mls @ 70 mls/hr IV .[id number] [facility] Stop: 03/29/18 00:44 Last Admin: 01/30/18 10:07 Dose: 70 mls/hr Magnesium Sulfate (Magnesium Sulfate Premix) 2 gm in 50 mls @ 25 mls/hr IV DAILY PRN PRN Reason: Magnesium level less than 1.6 Stop: 03/29/18 10:23 Piperacillin Sod/Tazobactam (Sod 2.25 gm/ Sodium Chloride) 50 mls @ 100 mls/hr IV Q6HR [facility] Stop: 03/29/18 11:59 Last Admin: 01/31/18 05:14 Dose: 100 mls/hr Potassium Chloride 40 meq/Lidocaine HCl 25 mg/ Sodium Chloride 272.5 mls @ 68 mls/hr IV DAILY PRN PRN Reason: k level less than 3.2 Stop: 04/01/18 10:46 Lorazepam (Ativan) 1 mg IVP Q4HR PRN; Protocol PRN Reason: Agitation Stop: 03/29/18 10:23 Losartan Potassium (Cozaar) 50 mg PO DAILY [facility] Stop: 03/30/18 08:59 Last Admin: 01/31/18 09:57 Dose: 50 mg Magnesium Oxide (Mag-Oxide) 400 mg PO BID PRN PRN Reason: Mg less than 1.9 Stop: 03/29/18 10:23 Last Admin: 01/29/18 00:34 Dose: 400 mg Miscellaneous (Zosyn Iv Per Pharmacy) 1 ea MC PRN PRN PRN Reason: PROTOCOL Stop: 03/29/18 10:19 Morphine Sulfate (Morphine) 1 mg IVP Q4HR PRN PRN Reason: Severe Pain Stop: 03/29/18 10:23 Ondansetron HCl (Zofran) 4 mg IVP Q6H PRN PRN Reason: Nausea / Vomiting Stop: 03/29/18 10:23 Potassium Chloride (Klor-Con) 40 meq PO DAILY PRN PRN Reason: k level less than 3.5 Stop: 03/30/18 10:30 General: No acute distress, Other (confused, weak) HEENT: Atraumatic, PERRLA Neck: Supple, no JVD Cardiovascular: Regular rate, Normal S1 Lungs: Other (decreased BS BL) Assessment/Plan - Assessment Assessment: Asp PNA Hypokalemia Parkinson's disease Fail to thrive Neuropathic pain ANAMARIA with exac HTN Dysphagia - Plan Plan: Swallow eval pending. On IV Zosyn. Start prn Duoneb. Hypokalemia and Hypomagnesemia resolved. Pt very weak. She failed swallow eval on 01/30/18. Family requested hospice eval. Nutritional Asmnt/Malnutr-PDOC - Dietary Evaluation Malnutrition Findings (Please click <Entered> for more info): Nutritional Asmnt/Malnutrition Start: 01/28/18 12: 33 Text: Status: Complete Freq: Document 01/28/18 12:33 MMULHERN (Rec: 01/28/18 12:47 [facility] Nutritional Asmnt/Malnutrition Patient General Information Nutritional Screening Consult Diagnosis Failure to Thrive Pertinent Medical Hx/Surgical Hx HTN, muscle weakness, poor appetite, anxitety, depression , CVA/TIA, metabolic encephalopathy Subjective Information Consult received for Yg 11 . Per nursing notes, patient with poor appetite x 1 day. Per nursing notes, patient is aphasic. Swallow evaluation pending. Patient's family at bedside; states she only eats ground foods due to no teeth, mostly liquids. Likes her liquids on ice and with a bendy straw. States they have been bringing her in "halo halo" ice cream, and she has been eating ~1 cup at a time. Per family, patient weighed 98lb a few months ago (9lb weight loss). Patient appears with severe muscle wasting. Current Diet Order/ Nutrition Support Mechanical soft ground Patient / S.O Can't verbalize diet edu Pertinent Medications D5-0.9% NS @70ml/hr, colace, cozaar, mag-oxide, magnesium sulfate, zofran, abx Pertinent Labs (01/27) Na 135, K 3.3, Calcium 7.8, Mg 1.7 Nutritional Hx/Data Height 1.52 m Height (Calculated Centimeters) 152.4 Current Weight (lbs) 40.37 kg Weight (Calculated Kilograms) 40.4 Weight (Calculated Grams) 77371.7 [place] Body Weight 100 % [place] Body Weight 89 Body Mass Index (BMI) 17.4 Recent Weight Change No Weight Status Underweight GI Symptoms GI Symptoms None Last BM none noted since admission Difficult in: Chewing Food Allergies No Cultural/Ethnic/Temple Belief none indicated Usual diet at home ground, mostly liquid (likes strawberry nutrition supplements.) Skin Integrity/Comment: Yg 11, coccyx "area of concern", scar Current %PO Poor (25-49%) Estimated Nutritional Goals BEE in Kcals: Using Current wt Calories/Kcals/Kg 40.4kg CBW (30-35 kcal/kg) Kcals Calculated ~9181-7100 kcal/day Protein: Using Current wt Protein g/k.2-1.5 gm/kg Protein Calculated ~50-60gm/day Fluid: ml ~2855-5004 ml/day Nutritional Problem 1. Problem Problem Altered nutrition related lab values related to Etiology electrolyte imbalance aeb Signs/Symptoms: Na 135, K 3.3, Calcium 7.8, Mg 1.7 Intervention/Recommendation Comments 1. Continue mechanical soft ground diet as tolerated by patient. Modify diet texture based on results of swallow evaluation. 2. Add Boost plus (strawberry, by patient's request) TID with meals due to patient prefering nutrition from liquids. 3. Provide assistance with all meals. 4. F/U HR 01/30- Expected Outcomes/Goals Expected Outcomes/Goals Oral intake >75% of meals, weight gain toward IBW, labs WNL.
[2018-01-31] MEDS: KCL 20mEq/100mL Premix 20 MEQ/100 ML PIGGYBACK IV SCH ×2 (11:40→14:07)
--- NOTE | 2018-02-01 08:14 | Discharge Summary ---
DATE OF DISCHARGE: 01/31/2018 Date of discharge back to [facility], 01/31/2018. CAUSE OF ADMISSION: The patient is an 88-year-old female who is a patient at [facility]. She has history of dementia, end-stage Parkinson disease, chronic pain, depression, neuropathy as well. For the last several days to couple of weeks she has been declining, in fact she stopped eating about a week ago. Over the last few weeks, she has been becoming weaker and weaker. She had zero oral intake. She was more confused, more lethargic and basically experienced failure to thrive. She was sent to the hospital for further workup and treatment. ADMITTING DIAGNOSES: 1. Aspiration pneumonia. 2. Parkinson disease. 3. Neuropathic pain. 4. Hypokalemia. 5. Failure to thrive. 6. Alzheimer dementia with exacerbation. 7. Hypertension. 8. Dysphagia. DISCHARGE DIAGNOSES: 1. Aspiration pneumonia. 2. Parkinson disease. 3. Neuropathic pain. 4. Hypokalemia. 5. Failure to thrive. 6. Alzheimer dementia with exacerbation. 7. Hypertension. 8. Dysphagia. SUMMARY OF HOSPITAL COURSE: The patient received a swallow evaluation, she failed that she was declining. She had worsening confusion. She was started on IV fluids. The family came. She has no immediate relatives, but that there is nephew and niece who made her DNR and they agreed to make her comfortable. Hospice evaluation was done and she was placed on hospice and discharged back to [facility] on hospice on 01/31/2018. The patient was appropriate for GIP hospice because of acute decline and failure to thrive along with dysphagia. Prognosis poor. PHYSICAL EXAM AND LABS: As charted. PROCEDURES: None. CONSULTS: None. JOB# [id number]
== END 2018-01-31 17:15 | DRG 177 ==
LOC: ER 19:58 → MSI 01-28 00:30
PROVIDERS: ADMIT General Practice; ATTEND General Practice
PROC: 3E0234Z Introduction of Serum, Toxoid and Vaccine into Muscle, Percutaneous Approach (ICD-10-PCS; principal; 2018-01-28)
DX: J69.0 Pneumonitis due to inhalation of food and vomit (principal); G93.41 Metabolic encephalopathy; R62.7 Adult failure to thrive; R13.10 Dysphagia, unspecified; E87.6 Hypokalemia; G20 Parkinson's disease; G62.9 Polyneuropathy, unspecified; I10 Essential (primary) hypertension; F41.9 Anxiety disorder, unspecified; Z66 Do not resuscitate; Z51.5 Encounter for palliative care; F32.9 Major depressive disorder, single episode, unspecified; R60.9 Edema, unspecified; G89.29 Other chronic pain; G30.9 Alzheimer's disease, unspecified; F02.80 Dementia in other diseases classified elsewhere, unspecified severity, without behavioral disturbance, psychotic disturbance, mood disturbance, and anxiety; E78.5 Hyperlipidemia, unspecified; E83.42 Hypomagnesemia; Z79.899 Other long term (current) drug therapy; Z86.73 Personal history of transient ischemic attack (TIA), and cerebral infarction without residual deficits; Z88.6 Allergy status to analgesic agent; Z23 Encounter for immunization
CPT/HCPCS: 36415-UA; 71045-TC; 80048-TC; 81001-TC; 83735-TC; 85025-TC; 93005; 94760; J1644; J1940; J2543; J3475; J3480; J7030; J7042; X3401; Z7610